=== PATIENT | female | born 1945 | race Caucasian/White ===

== ENCOUNTER 2020-01-29 14:00 | Emergency (ER) | payer MEDICARE, BC ==
--- NOTE | 2020-01-29 15:05 | EDM.PDOC ---
ED HPI GENERAL MEDICAL PROBLEM - General Chief Complaint: Cardiovascular Problem Stated Complaint: SOB/ AFIB acting up Time Seen by Provider: 01/29/20 14:41 Source of Information: Reports: Patient History Limitations: Reports: No Limitations - History of Present Illness INITIAL COMMENTS - FREE TEXT/NARRATIVE: This patient is a pleasant 74 year old female that presents to the ER. Patient reports that she has had chronic a-fib for years. She reports that she has a loop. She reports that she used to go in and out of a-fib all the time when she was on Lopressor. She reports back in April she got switched to Diltiazem and it has been working well for her. She reports she has gone in an out of a-fib since then, but it does not last long. She reports that the past couple of weeks she has been having dizziness and shortness of breath, worse since Saturday , then a little worse today. She reports that she has felt like she has been going in and out of afib with it. She reports today, all day had it, but worse around noon, she had some dizziness with positional changes and shortness of breath, she checked her loop. The recorder called her and said she was in a- fib. The patient presents to the ER because the recorder from the loop called and her and told her she was in a-fib. The patient does reports she has been seen for this complaint. She is on coumadin as well for a-fib. 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 Patent denies any chest pain. She does report a history of several weeks having left lower dental pain and swelling. She reports her dentist did a filling, but it had swelling couple days ago, she she was put on Amoxicillin, took a couple days, then was switched to Cephalexin. The swelling has improved, she has appointment with dentist on to get the tooth pulled. Onset: Other (comes and goes for years) Duration: Week(s): ("several"), Other ("years") Severity: Mild Improves with: Reports: Rest Associated Symptoms: Reports: Shortness of Breath. Denies: Confusion, Chest Pain, Cough, cough w sputum, Diaphoresis, Fever/Chills, Headaches, Loss of Appetite, Malaise, Nausea/Vomiting, Rash, Seizure, Syncope, Weakness - Related Data Allergies Allergy/AdvReac Type Severity Reaction Status Date / Time Iodinated Contrast Media Allergy Unknown Cannot Verified 01/29/20 14:57 [Iodinated Contrast Media - Remember IV Dye] Penicillins Allergy Rash Verified 01/29/20 14:57 Home Meds: Home Meds Albuterol [Ventolin HFA] 2 puff INH BID PRN 01/21/14 [History] Ciclesonide [Omnaris] 2 sprays NS DAILY PRN 01/21/14 [History] Citalopram Hydrobromide [Citalopram HBr] 15 mg PO BEDTIME 01/21/14 [History] Cranberry Fruit Extract/Vit C [Azo Cranberry Softgel] 1 each PO DAILY 01/21/14 [ History] Fish Oil/[place]-3 Fatty Acids [Fish Oil] 1 cap PO BID 01/21/14 [History] Warfarin Sodium 5 mg PO DAILY 01/21/14 [History] Diltiazem IR [Cardizem] 30 mg PO BID 01/29/20 [History] Past Medical History HEENT 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: Cataract Cardiovascular 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: Afib, Blood Clots/VTE/DVT, SOB on Exertion Other Cardiovascular History: Telemetry today appears to be PAC's not A fib; appears that she has regular P's; the patient says she has Afib at times, sometimes she can "feel" when she has it; says she has some chest pain at times , tightness, especially when laying on her left shoulder, more like "bursitis or pleurisy;" c/o dizziness when she gets up too fast, goes away within a few minutes; Respiratory 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: Asthma, Sleep Apnea Other Respiratory History: uses CPAP Gastrointestinal 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: GERD VP OUTCOMES 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: Other VP OUTCOMES History: hysterectomy 25 years ago Musculoskeletal 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: Arthritis Other Musculoskeletal History: says she fell on ice last winter, needed stitches ; uses outdoor Psychiatric 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: Anxiety, Depression - Infectious Disease History Infectious Disease 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: Chicken Pox, Shingles - Past Surgical History HEENT Surgical 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: Cataract Surgery GI Surgical 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: Colonoscopy Musculoskeletal Surgical 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: Knee Replacement Social & Family History - Family History Family Medical History: Noncontributory Endocrine/Metabolic: Reports: Diabetes, type II Oncologic: Reports: Leukemia, Non-Hodgkin's Lymphoma - Tobacco Use Smoking Status *Q: Never Smoker - Caffeine Use Caffeine Use: Reports: None - Recreational Drug Use Recreational Drug Use: No ED ROS GENERAL - Review of Systems Review Of Systems: See Below Constitutional: Reports: No Symptoms HEENT: Reports: Dental Pain Respiratory: Reports: Shortness of Breath. Denies: Wheezing, Cough, Sputum, Hemoptysis Cardiovascular: Reports: Lightheadedness. Denies: Chest Pain, Edema, Palpitations Endocrine: Reports: No Symptoms GI/Abdominal: Reports: No Symptoms. Denies: Abdominal Pain, Nausea, Vomiting : Reports: No Symptoms Musculoskeletal: Reports: No Symptoms Skin: Reports: No Symptoms Neurological: Reports: No Symptoms. Denies: Confusion, Headache, Numbness, Seizure, Syncope, Tingling, Weakness, Change in Speech Psychiatric: Reports: No Symptoms Hematologic/Lymphatic: Reports: No Symptoms Immunologic: Reports: No Symptoms ED EXAM, GENERAL - Physical Exam Exam: See Below Exam Limited By: No Limitations General Appearance: Alert, WD/WN, No Apparent Distress Eye Exam: Bilateral Eye: EOMI, Normal Inspection, PERRL Ears: Normal External Exam, Normal Canal, Hearing Grossly Normal, Normal TMs Ear Exam: Bilateral Ear: Auricle Normal, Canal Normal, TM normal Nose: Normal Inspection, Normal Mucosa, No Blood Throat/Mouth: Normal Inspection, Normal Lips, Normal Gums, Normal Oropharynx, Normal Voice, No Airway Compromise, Other (dental decay, mild gum swelling left lower with cavity. No abscess felt on exam.) Head: Atraumatic, Normocephalic. No: Facial Swelling Neck: Normal Inspection, Supple, Non-Tender, Full Range of Motion Respiratory/Chest: No Respiratory Distress, Lungs Clear, Normal Breath Sounds, No Accessory Muscle Use Cardiovascular: Irregularly Irregular (rate of 90, a-fib) Peripheral Pulses: 2+: Carotid (L), Carotid (R), Radial (L), Radial (R), Posterior Tibial (L), Posterior Tibial (R), Dorsalis Pedis (L), Dorsalis Pedis ( R) GI/Abdominal: Soft, Non-Tender Extremities: Normal Inspection, Normal Range of Motion, Non-Tender, No Pedal Edema, Normal Capillary Refill Neurological: Alert, Oriented, CN II-XII Intact, Normal Cognition, No Motor/ Sensory Deficits Psychiatric: Normal Affect, Normal Mood Skin Exam: Warm, Dry, Intact, Normal Color, No Rash Lymphatic: No Adenopathy EKG INTERPRETATION EKG Date: 01/29/20 Time: 14:28 Rhythm: A-Fib Rate (Beats/Min): 91 Course - Vital Signs Last Recorded V/S: Last Vital Signs Temp 96.3 F L 01/29/20 16:29 Pulse 89 01/29/20 16:29 Resp 18 01/29/20 16:29 BP 176/86 H 01/29/20 16:29 Pulse Ox 97 01/29/20 16:29 - Orders/Labs/Meds Orders: Active Orders 24 hr Category Date Time Status Chest 2V [CR] Stat Exams 01/29/20 15:25 Taken Labs: Laboratory Tests 01/29/20 01/29/20 01/29/20 Range/Units 14:33 14:33 14:33 WBC 7.4 (5.0-10.0) 10^3/uL RBC 4.36 (4.00-5.50) 10^6/uL Hgb 13.3 (12.0-16.0) g/dL Hct 40.0 (37.0-47.0) % MCV 91.7 (82.0-94.0) fL MCH 30.5 (27.0-32.0) pg MCHC 33.3 (33.0-38.0) g/dL RDW Coeff of [place] 13.9 (11.0-15.0) % Plt Count 272 (150-400) 10^3/uL Neut % (Auto) 61.6 (35-85) % Lymph % (Auto) 27.2 (10-55) % [place] % (Auto) 10.0 (0-16) % Eos % (Auto) 0.8 (0-5) % Baso % (Auto) 0.4 (0-3) % Neut # (Auto) 4.57 (1.80-7.00) 10^3/uL Lymph # (Auto) 2.02 (1.00-4.80) 10^3/uL [place] # (Auto) 0.74 (0.00-0.80) 10^3/uL Eos # (Auto) 0.06 (0.00-0.45) 10^3/uL Baso # (Auto) 0.03 10^3/uL PT 32.6 H (9.7-12.3) SEC INR 3.27 H (0.92-1.18) Sodium 137 (136-145) mEq/L Potassium 4.3 (3.5-5.0) mEq/L Chloride 100 (98-106) mEq/L Carbon Dioxide 32 (21-32) mmol/L BUN 22 H (7-18) mg/dL Creatinine 1.2 H (0.6-1.0) mg/dL Est Cr Clr Drug Dosing 37.92 mL/min Estimated GFR (MDRD) 44 L (>=60) mL/min Glucose 98 (75-99) mg/dL Calcium 8.8 (8.4-10.1) mg/dL Lactate Dehydrogenase 82 L (100-190) U/L Creatine Kinase 46 (21-215) U/L Troponin I < 0.017 (0.00-0.06) ng/mL NT-Pro-B Natriuret Pep 3166 H (0-1000) pg/mL - Radiology Interpretation Free Text/Narrative:: CXR: No infiltrates, no pulmonary edema, no cardiac enlargement. - Re-Assessments/Exams Free Text/Narrative Re-Assessment/Exam: 01/29/20 15:[address] [facility] surface boss. One call busy, they will call me back. 01/29/20 16:15 Patient reports she is still having shortness of breath and lightheadedness. I called and spoke to surface boss Dr. Anderson at [facility]. She reports patient should be admitted with pacer pads on and to see an [employer] Tender for possible pacing/pacemaker/ablation. Due to patient having proximal a-fib, hx of bradycardia, and currently symptomatic. She reports they do not have an EP loss control technician over the weekend. She recommends admit, but where an EP is loss control technician on weekend. I was then transferred to [facility]. I then spoke to hospitalist Dr. Leone. He reports they do not have an EP loss control technician this weekend either. He also reports patient needs admit for evaluation and surface boss consult. He said he will accept the patient. However, the patient surface boss is in [place]. Patient also refuses to go to [place]. 01/29/20 16:[address] [facility] one call back. I asked if they would accept the patient to hospitalist service due to no EP in [place]. And this is where patient surface boss is located. One call reports they spoke to the hospitalist, but the surface boss did not feel comfortable accepting the patient. So, they are paging Dr. Samuels surface boss to see about accepting. They will call me back. 01/29/20 17:00 Patient son Prince called and we discussed the patient and reason for delays in transfer/admit/discharge. 01/29/20 17:20 Dr. Anderson surface boss at [facility] called me back. She reports she spoke to Dr. Samuels surface boss EP and went over patient case in great detail. Dr. Anderson reports that doctor Abril does not believe this is anything and can be discharged out patient to be seen Saturday. Discharge patient home. I then spoke to the patient and she reports she feels comfortable going home. As this has been ongoing since Saturday. I did educate patient she may return at anytime if she would like to be admitted. She reports she would like to go home. I also educated her when to return for worsening. I then called and spoke to son Prince again. We discussed admit vs discharge. He reports he will stop in and check on her at home. Patient reports she has good neighbors. Will discharge home. Departure - Departure Time of Disposition: 17:33 Disposition: Home, Self-Care 01 Condition: Fair Clinical Impression: Afib, Atrial fibrillation Instructions: Atrial Fibrillation, [id number] Referrals: Stephie Villalpando PA [Primary Care Provider] - Forms: ED Department Discharge Additional Instructions: Followup with Dr. Samuels by calling office Saturday for possible appointment that or Saturday I spoke with Consumer Marketing Specialist Dr. Anderson about your care today in the ER: She also spoke with Dr. Samuels Please return to the ER for worsening of condition or any emergent concerns Followup with your primary care provider Sepsis Event Note - Evaluation Sepsis Screening Result: No Definite Risk - Focused Exam Vital Signs: Vital Signs Temp Pulse Resp BP Pulse Ox 01/29/20 16:29 96.3 F L 89 18 176/86 H 97 01/29/20 14:01 97.6 F 91 20 126/73 98 Date Exam was Performed: 01/29/20 Time Exam was Performed: 17:33 - My Orders Last 24 Hours: My Active Orders 01/29/20 15:25 Chest 2V [CR] Stat - Assessment/Plan Last 24 Hours: My Active Orders 01/29/20 15:25 Chest 2V [CR] Stat Plan: PLEASE SEE RN NOTE FOR PFSH
[2020-01-29 15:06] LABS: CHLORIDE,CL 100 mEq/L (98-106); SODIUM,NA 137 mEq/L (136-145)
[2020-01-29 16:32] VITALS: BP 176/86; PULSE 89
== END 2020-01-29 17:43 | disposition home or self-care (01) ==
LOC: CC.ED 14:00
DX: I48.91 Unspecified atrial fibrillation (principal); J45.909 Unspecified asthma, uncomplicated; F41.9 Anxiety disorder, unspecified; F32.9 Major depressive disorder, single episode, unspecified; Z79.01 Long term (current) use of anticoagulants; Z79.899 Other long term (current) drug therapy; Z91.041 Radiographic dye allergy status; Z88.0 Allergy status to penicillin; R06.02 Shortness of breath
CPT/HCPCS: 36415; 71046; 80048; 82550; 83615; 83880; 84484; 85025; 85610; 99284; 99285-25

== ENCOUNTER 2020-01-31 14:32 | Emergency (ER) | payer MEDICARE, BC ==
--- NOTE | 2020-01-31 14:53 | EDM.PDOC ---
ED HPI GENERAL MEDICAL PROBLEM - General Chief Complaint: General Stated Complaint: syncopal episode Time Seen by Provider: 01/31/20 14:47 Source of Information: Reports: Patient History Limitations: Reports: No Limitations - History of Present Illness INITIAL COMMENTS - FREE TEXT/NARRATIVE: This patient is a 74 year old female that presents to the ER. Patient reports that she was at home today and her children had just brought her lunch. She reports she was eating then stood, felt lightheaded, then passed out. The family caughter her during passing out and laid her to the floor. There was no fall or injury. EMS reports that family said she was passed out and would not answer them. EMS reports when they arrived patient was alert and oriented and awake. Patient arrives in the ER awake and alert. Patient was seen in this ER Saturday and seen by me. She was seen for lightheaded, a-fib complaint. She has been feeling lightheaded since Saturday on and off again. Discussed transfer on Saturday with Randall Hicks, but cardiology reported to discharge patient home and would see out patient on Saturday. Onset: Today Onset Date: 01/31/20 Onset Time: 13:30 Severity: Moderate Improves with: Reports: None Worsens with: Reports: None Associated Symptoms: Reports: Shortness of Breath, Syncope, Weakness ( generalized). Denies: Confusion, Chest Pain, Cough, cough w sputum, Diaphoresis , Fever/Chills, Headaches, Loss of Appetite, Malaise, Nausea/Vomiting, Rash, Seizure - Related Data Allergies Allergy/AdvReac Type Severity Reaction Status Date / Time Iodinated Contrast Media Allergy Unknown Cannot Verified 01/31/20 14:40 [Iodinated Contrast Media - Remember IV Dye] Penicillins Allergy Rash Verified 01/31/20 14:40 Home Meds: Home Meds Albuterol [Ventolin HFA] 2 puff INH BID PRN 01/21/14 [History] Ciclesonide [Omnaris] 2 sprays NS DAILY PRN 01/21/14 [History] Citalopram Hydrobromide [Citalopram HBr] 15 mg PO BEDTIME 01/21/14 [History] Cranberry Fruit Extract/Vit C [Azo Cranberry Softgel] 1 each PO DAILY 01/21/14 [ History] Fish Oil/[place]-3 Fatty Acids [Fish Oil] 1 cap PO BID 01/21/14 [History] Warfarin Sodium 5 mg PO DAILY 01/21/14 [History] Diltiazem IR [Cardizem] 30 mg PO BID 01/29/20 [History] cephALEXin [Cephalexin] 500 mg PO QID 01/31/20 [History] Past Medical History HEENT 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: Cataract Cardiovascular 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: Afib, Blood Clots/VTE/DVT, SOB on Exertion Other Cardiovascular History: Telemetry today appears to be PAC's not A fib; appears that she has regular P's; the patient says she has Afib at times, sometimes she can "feel" when she has it; says she has some chest pain at times , tightness, especially when laying on her left shoulder, more like "bursitis or pleurisy;" c/o dizziness when she gets up too fast, goes away within a few minutes; Respiratory 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: Asthma, Sleep Apnea Other Respiratory History: uses CPAP Gastrointestinal 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: GERD ACREAGE REPORTER 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: Other ACREAGE REPORTER History: hysterectomy 25 years ago Musculoskeletal 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: Arthritis Other Musculoskeletal History: says she fell on ice last winter, needed stitches ; uses outdoor Psychiatric 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: Anxiety, Depression - Infectious Disease History Infectious Disease 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: Chicken Pox, Shingles - Past Surgical History HEENT Surgical 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: Cataract Surgery GI Surgical 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: Colonoscopy Musculoskeletal Surgical 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: Knee Replacement Social & Family History - Family History Family Medical History: Noncontributory Endocrine/Metabolic: Reports: Diabetes, type II Oncologic: Reports: Leukemia, Non-Hodgkin's Lymphoma ED [facility] GENERAL - Review of Systems Review Of Systems: See Below Constitutional: Reports: Weakness (generalized) HEENT: Reports: No Symptoms Respiratory: Reports: Shortness of Breath. Denies: Wheezing, Pleuritic Chest Pain, Cough, Sputum, Hemoptysis Cardiovascular: Reports: Dyspnea on Exertion, Lightheadedness, Syncope. Denies : Chest Pain, Edema, Palpitations Endocrine: Reports: No Symptoms GI/Abdominal: Reports: No Symptoms. Denies: Abdominal Pain, Diarrhea, Nausea, Vomiting : Reports: No Symptoms Musculoskeletal: Reports: No Symptoms Skin: Reports: No Symptoms Neurological: Reports: Syncope. Denies: Confusion, Headache, Seizure, Tremors, Trouble Speaking, Weakness (no unilateral weaknesses. Stroke Score 0. GCS 15.), Change in Speech Psychiatric: Reports: No Symptoms Hematologic/Lymphatic: Reports: No Symptoms Immunologic: Reports: No Symptoms ED EXAM, GENERAL - Physical Exam Exam: See Below Exam Limited By: No Limitations General Appearance: Alert, WD/WN, No Apparent Distress Eye Exam: Bilateral Eye: EOMI, Normal Inspection, PERRL Ears: Normal External Exam, Normal Canal, Hearing Grossly Normal, Normal TMs Ear Exam: Bilateral Ear: Auricle Normal, Canal Normal, TM normal Nose: Normal Inspection, Normal Mucosa, No Blood Throat/Mouth: Normal Inspection, Normal Lips, Normal Teeth, Normal Gums, Normal Oropharynx, Normal Voice, No Airway Compromise Head: Atraumatic, Normocephalic Neck: Normal Inspection, Supple, Non-Tender, Full Range of Motion Respiratory/Chest: No Respiratory Distress, Lungs Clear, Normal Breath Sounds, No Accessory Muscle Use Cardiovascular: Irregularly Irregular (rate 70-80s on exam) Peripheral Pulses: 2+: Carotid (L), Carotid (R), Radial (L), Radial (R), Posterior Tibial (L), Posterior Tibial (R), Dorsalis Pedis (L), Dorsalis Pedis ( R) GI/Abdominal: Normal Bowel Sounds, Soft, Non-Tender, No Organomegaly, No Distention Back Exam: Normal Inspection, Full Range of Motion Extremities: Normal Inspection, Normal Range of Motion, Non-Tender, No Pedal Edema, Normal Capillary Refill Neurological: Alert, Oriented, CN II-XII Intact, Normal Cognition, Normal Gait, No Motor/Sensory Deficits Psychiatric: Normal Affect, Normal Mood Skin Exam: Warm, Dry, Intact, Normal Color, No Rash Lymphatic: No Adenopathy EKG INTERPRETATION EKG Date: 01/31/20 Time: 14:40 Rhythm: A-Fib Rate (Beats/Min): 86 Comparison: No Change Course - Vital Signs Last Recorded V/S: Last Vital Signs Temp 98.0 F 01/31/20 14:41 Pulse 70 01/31/20 14:41 Resp 16 01/31/20 15:19 BP 155/58 H 01/31/20 15:19 Pulse Ox 99 01/31/20 15:19 - Orders/Labs/Meds Orders: Active Orders 24 hr Category Date Time Status Chest 2V [CR] Stat Exams 01/31/20 14:48 Taken Head wo Cont [CT] Routine Exams 01/31/20 Taken EKG 12 Lead [EK] Stat Ther 01/31/20 14:47 Ordered Labs: Laboratory Tests 01/31/20 01/31/20 01/31/20 Range/Units 14:43 14:43 14:43 WBC 6.4 (5.0-10.0) 10^3/uL RBC 4.63 (4.00-5.50) 10^6/uL Hgb 14.1 (12.0-16.0) g/dL Hct 42.2 (37.0-47.0) % MCV 91.1 (82.0-94.0) fL MCH 30.5 (27.0-32.0) pg MCHC 33.4 (33.0-38.0) g/dL RDW Coeff of Rubens 13.9 (11.0-15.0) % Plt Count 285 (150-400) 10^3/uL Neut % (Auto) 56.8 (35-85) % Lymph % (Auto) 35.2 (10-55) % [place] % (Auto) 6.9 (0-16) % Eos % (Auto) 0.8 (0-5) % Baso % (Auto) 0.3 (0-3) % Neut # (Auto) 3.65 (1.80-7.00) 10^3/uL Lymph # (Auto) 2.26 (1.00-4.80) 10^3/uL [place] # (Auto) 0.44 (0.00-0.80) 10^3/uL Eos # (Auto) 0.05 (0.00-0.45) 10^3/uL Baso # (Auto) 0.02 10^3/uL PT 33.7 H (9.7-12.3) SEC INR 3.38 H (0.92-1.18) APTT 33.9 H (23.2-32.3) SEC Sodium 138 (136-145) mEq/L Potassium 4.0 (3.5-5.0) mEq/L Chloride 100 (98-106) mEq/L Carbon Dioxide 31 (21-32) mmol/L BUN 20 H (7-18) mg/dL Creatinine 1.2 H (0.6-1.0) mg/dL Est Cr Clr Drug Dosing 37.92 mL/min Estimated GFR (MDRD) 44 L (>=60) mL/min Glucose 131 H D (75-99) mg/dL Lactic Acid (0.4-2.0) mmol/L Calcium 9.2 (8.4-10.1) mg/dL Total Bilirubin 0.5 (0.0-1.0) mg/dL AST 20 (15-37) U/L ALT 22 (12-78) U/L Alkaline Phosphatase 74 (46-116) U/L Lactate Dehydrogenase 90 L (100-190) U/L Creatine Kinase 50 (21-215) U/L Troponin I < 0.017 (0.00-0.06) ng/mL NT-Pro-B Natriuret Pep 2809 H (0-1000) pg/mL Total Protein 6.8 (6.4-8.2) g/dL Albumin 3.4 (3.4-5.0) g/dL Urine Color (YELLOW) Urine Appearance (CLEAR) Urine pH (4.5-8.0) Ur Specific [place] (1.003-1.020) Urine Protein (NEGATIVE) mg/dL Urine Glucose (UA) (NEGATIVE) mg/dL Urine Ketones (NEGATIVE) mg/dL Urine Occult Blood (NEGATIVE) Urine Nitrite (NEGATIVE) Urine Bilirubin (NEGATIVE) Urine Urobilinogen (0.2-1.0) EU/dL Ur Leukocyte Esterase (NEGATIVE) 01/31/20 01/31/20 Range/Units 14:43 14:48 WBC (5.0-10.0) 10^3/uL RBC (4.00-5.50) 10^6/uL Hgb (12.0-16.0) g/dL Hct (37.0-47.0) % MCV (82.0-94.0) fL MCH (27.0-32.0) pg MCHC (33.0-38.0) g/dL RDW Coeff of Rubens (11.0-15.0) % Plt Count (150-400) 10^3/uL Neut % (Auto) (35-85) % Lymph % (Auto) (10-55) % [place] % (Auto) (0-16) % Eos % (Auto) (0-5) % Baso % (Auto) (0-3) % Neut # (Auto) (1.80-7.00) 10^3/uL Lymph # (Auto) (1.00-4.80) 10^3/uL [place] # (Auto) (0.00-0.80) 10^3/uL Eos # (Auto) (0.00-0.45) 10^3/uL Baso # (Auto) 10^3/uL PT (9.7-12.3) SEC INR (0.92-1.18) APTT (23.2-32.3) SEC Sodium (136-145) mEq/L Potassium (3.5-5.0) mEq/L Chloride (98-106) mEq/L Carbon Dioxide (21-32) mmol/L BUN (7-18) mg/dL Creatinine (0.6-1.0) mg/dL Est Cr Clr Drug Dosing mL/min Estimated GFR (MDRD) (>=60) mL/min Glucose (75-99) mg/dL Lactic Acid 1.4 (0.4-2.0) mmol/L Calcium (8.4-10.1) mg/dL Total Bilirubin (0.0-1.0) mg/dL AST (15-37) U/L ALT (12-78) U/L Alkaline Phosphatase (46-116) U/L Lactate Dehydrogenase (100-190) U/L Creatine Kinase (21-215) U/L Troponin I (0.00-0.06) ng/mL NT-Pro-B Natriuret Pep (0-1000) pg/mL Total Protein (6.4-8.2) g/dL Albumin (3.4-5.0) g/dL Urine Color Yellow (YELLOW) Urine Appearance Clear (CLEAR) Urine pH 7.0 (4.5-8.0) Ur Specific [place] 1.025 H (1.003-1.020) Urine Protein Negative (NEGATIVE) mg/dL Urine Glucose (UA) Negative (NEGATIVE) mg/dL Urine Ketones Negative (NEGATIVE) mg/dL Urine Occult Blood Negative (NEGATIVE) Urine Nitrite Negative (NEGATIVE) Urine Bilirubin Negative (NEGATIVE) Urine Urobilinogen 0.2 (0.2-1.0) EU/dL Ur Leukocyte Esterase Negative (NEGATIVE) - Radiology Interpretation Free Text/Narrative:: CXR: No infiltrates, no pulmonary edema. No changes from previous Head CT: No acute findings. CT Results Date: 01/31/20 CT Results Time: 15:15 - Re-Assessments/Exams Free Text/Narrative Re-Assessment/Exam: 01/31/20 15:26 I called and spoke to Obi [facility]. He paged Dr. Pimentel hospitalist at [facility], but was instructed to page out the hair blender. One Call now is paging Dr. Samuels the patient hair blender EP. 01/31/20 15:[address] Samuels is not answering his call back and his CAR DRIVER is not. Therefore, page is now out to the hair blender Dr. Anderson product manufacturing professional. 01/31/20 15:[address] Anderson cardilogist, she reports to transfer the patient for syncope. Dr. Loren sultanaist has accepted the patient. Departure - Departure Time of Disposition: 15:45 Disposition: DC/Tfer to [facility] 02 Condition: Fair Clinical Impression: Afib, Atrial fibrillation Syncope Qualifiers: Syncope type: unspecified Qualified Code(s): R55 - Syncope and collapse - Discharge Information *PRESCRIPTION DRUG MONITORING PROGRAM REVIEWED*: Not Applicable *COPY OF PRESCRIPTION DRUG MONITORING REPORT IN PATIENT RAMIRO: Not Applicable Forms: ED Department Discharge Sepsis Event Note - Evaluation Sepsis Screening Result: No Definite Risk - Focused Exam Vital Signs: Vital Signs Temp Pulse Resp BP Pulse Ox 01/31/20 15:19 16 155/58 H 99 01/31/20 14:41 98.0 F 70 18 128/47 L 99 Date Exam was Performed: 01/31/20 Time Exam was Performed: 15:43 - My Orders Last 24 Hours: My Active Orders 01/31/20 Head wo Cont [CT] Routine 01/31/20 14:47 EKG 12 Lead [EK] Stat 01/31/20 14:48 Chest 2V [CR] Stat - Assessment/Plan Last 24 Hours: My Active Orders 01/31/20 Head wo Cont [CT] Routine 01/31/20 14:47 EKG 12 Lead [EK] Stat 01/31/20 14:48 Chest 2V [CR] Stat Plan: PLEASE SEE RN NOTE FOR PFSH I am transferring the patient to [facility]. I have explained the risks vs benefits to the patient. The risks of transfer is mvc, cardiac arrest, [place], stroke, syncope, worsening of condition. The risks of staying in [place] is [place], Stroke, Syncope, . The benefits of the transfer is higher level of care , hair blender consult, Cardiology EP, ablation if needed. The benefits of staying in [place] is close to home.
[2020-01-31 15:04] LABS: PTT,PARTIAL THROMBOPLSTIN TIME 33.9 SEC (23.2-32.3)
[2020-01-31 15:05] LABS: CHLORIDE,CL 100 mEq/L (98-106); SODIUM,NA 138 mEq/L (136-145)
[2020-01-31 16:24] VITALS: BP 155/88; PULSE 88
== END 2020-01-31 16:35 ==
LOC: CC.ED 14:32
DX: I48.91 Unspecified atrial fibrillation (principal); F41.9 Anxiety disorder, unspecified; R55 Syncope and collapse; Z91.041 Radiographic dye allergy status; Z88.0 Allergy status to penicillin; Z79.899 Other long term (current) drug therapy; Z79.01 Long term (current) use of anticoagulants; J45.909 Unspecified asthma, uncomplicated
CPT/HCPCS: 36415; 70450; 71046; 80053; 81003; 82550; 83605; 83615; 83880; 84484; 85025; 85610; 85730; 93005; 99284; 99285-25

== ENCOUNTER 2020-04-05 11:03 | Observation (INO) | payer MEDICARE, BC ==
[2020-04-05 11:35] LABS: PTT,PARTIAL THROMBOPLSTIN TIME 30.3 SEC (23.2-32.3)
[2020-04-05 11:59] LABS: CHLORIDE,CL 105 mEq/L (98-106); SODIUM,NA 143 mEq/L (136-145)
[2020-04-05] MEDS ORDERED: Docusate Sodium 100 MG Cap PO PRN (13:14)
[2020-04-05] MEDS ORDERED: Sodium Chloride 0.9% 10 ML Syringe FLUSH PRN (13:14)
--- NOTE | 2020-04-05 13:24 | EDM.PDOC ---
ED HPI GENERAL MEDICAL PROBLEM - General Chief Complaint: General Stated Complaint: A-FIB Time Seen by Provider: 04/05/20 11:37 Source of Information: Reports: Patient History Limitations: Reports: No Limitations - History of Present Illness INITIAL COMMENTS - FREE TEXT/NARRATIVE: Luba is a 74 yo female who presents to the ED with concerns of atrial fibrillation. She states she has a history of atrial fibrillation and has been on Coumadin for quite some time. She admits to starting to notice around 2000hrs yesterday she just wasn't feeling well. Admits to getting lightheaded and having a sharp pain across her left side of her chest. She admits she did call her numerical control drill press operator at [facility] in [place] and he did put in an order for an EKG, which she had this morning. When she got the EKG she felt generalized weak. She states she did notice a headache this morning too, rates it a 5 out of a 10. No other neurological symptoms. Admits to feeling short of breath but is chronic for her. Headache Pain Score (Numeric/FACES): 5 - Related Data Allergies Allergy/AdvReac Type Severity Reaction Status Date / Time Iodinated Contrast Media Allergy Unknown Cannot Verified 04/05/20 11:17 [Iodinated Contrast Media - Remember IV Dye] Penicillins Allergy Rash Verified 04/05/20 11:17 Home Meds: Home Meds Albuterol [Ventolin HFA] 2 puff INH BID PRN 01/21/14 [History] Citalopram Hydrobromide [Citalopram HBr] 15 mg PO BEDTIME 01/21/14 [History] Cranberry Fruit Extract/Vit C [Azo Cranberry Softgel] 1 each PO DAILY 01/21/14 [History] Fish Oil/[place]-3 Fatty Acids [Fish Oil] 1 cap PO BID 01/21/14 [History] Warfarin Sodium 5 mg PO DAILY 01/21/14 [History] Diltiazem IR [Cardizem] 30 mg PO BID 01/29/20 [History] Past Medical History HEENT 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: Cataract Cardiovascular 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: Afib, Blood Clots/VTE/DVT, SOB on Exertion Other Cardiovascular History: Telemetry today appears to be PAC's not A fib; appears that she has regular P's; the patient says she has Afib at times, sometimes she can "feel" when she has it; says she has some chest pain at times, tightness, especially when laying on her left shoulder, more like "bursitis or pleurisy;" c/o dizziness when she gets up too fast, goes away within a few minutes; Respiratory 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: Asthma, Sleep Apnea Other Respiratory History: uses CPAP Gastrointestinal 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: GERD 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 REFUELER 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: Other AIRPLANE REFUELER History: hysterectomy 25 years ago Musculoskeletal 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: Arthritis Other Musculoskeletal History: says she fell on ice last winter, needed stitches; uses outdoor Psychiatric 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: Anxiety, Depression - Infectious Disease History Infectious Disease 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: Chicken Pox, Shingles - Past Surgical History HEENT Surgical 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: Cataract Surgery GI Surgical 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: Colonoscopy Musculoskeletal Surgical 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: Knee Replacement Social & Family History - Family History Family Medical History: Noncontributory Endocrine/Metabolic: Reports: Diabetes, type II Oncologic: Reports: Leukemia, Non-Hodgkin's Lymphoma - Tobacco Use Smoking Status *Q: Never Smoker - Caffeine Use Caffeine Use: Reports: None - Recreational Drug Use Recreational Drug Use: No ED ROS GENERAL - Review of Systems Review Of Systems: See Below Constitutional: Reports: Weakness, Fatigue. Denies: Fever, Chills, Night Sweats HEENT: Reports: No Symptoms. Denies: Vision Change Respiratory: Reports: Shortness of Breath. Denies: Wheezing, Cough Cardiovascular: Reports: Chest Pain (last night, subsided almost immediately with no reoccurence. ), Lightheadedness, Palpitations. Denies: Syncope GI/Abdominal: Reports: No Symptoms : Reports: Frequency Musculoskeletal: Reports: No Symptoms Skin: Reports: No Symptoms Neurological: Reports: Headache, Weakness Psychiatric: Reports: No Symptoms ED EXAM, GENERAL - Physical Exam Exam: See Below Exam Limited By: No Limitations General Appearance: Alert, WD/WN, No Apparent Distress Eye Exam: Bilateral Eye: Normal Inspection Ears: Normal External Exam, Normal Canal, Hearing Grossly Normal, Normal TMs Nose: Normal Inspection, Normal Mucosa, No Blood Throat/Mouth: Normal Inspection, Normal Lips, Normal Gums, Normal Oropharynx, Normal Voice, No Airway Compromise Head: Atraumatic, Normocephalic Neck: Normal Inspection, Supple. No: Lymphadenopathy (L), Lymphadenopathy (R) Respiratory/Chest: No Respiratory Distress, Lungs Clear, Normal Breath Sounds, No Accessory Muscle Use Cardiovascular: No Edema, No Murmur, Irregularly Irregular Peripheral Pulses: 2+: Dorsalis Pedis (L), Dorsalis Pedis (R) GI/Abdominal: Normal Bowel Sounds, Soft, Non-Tender, No Organomegaly, No Distention, No Abnormal Bruit, No Mass Extremities: Normal Inspection, No Pedal Edema Neurological: Alert, Oriented, Normal Cognition, No Motor/Sensory Deficits Psychiatric: Normal Affect, Normal Mood Skin Exam: Warm, Dry, Intact, Normal Color, No Rash EKG INTERPRETATION EKG Date: 04/05/20 Rhythm: A-Fib ST-T: Normal Course - Vital Signs Last Recorded V/S: Last Vital Signs Temp 98 F 04/05/20 12:37 Pulse 101 H 04/05/20 12:37 Resp 16 04/05/20 12:37 BP 119/74 04/05/20 12:37 Pulse Ox 95 04/05/20 12:37 - Orders/Labs/Meds Labs: Laboratory Tests 04/05/20 04/05/20 04/05/20 Range/Units 11:16 11:16 11:16 WBC 5.7 (5.0-10.0) 10^3/uL RBC 4.51 (4.00-5.50) 10^6/uL Hgb 13.4 (12.0-16.0) g/dL Hct 41.3 (37.0-47.0) % MCV 91.6 (82.0-94.0) fL MCH 29.7 (27.0-32.0) pg MCHC 32.4 L (33.0-38.0) g/dL RDW Coeff of Rubens 13.5 (11.0-15.0) % Plt Count 272 (150-400) 10^3/uL Neut % (Auto) 58.6 (35-85) % Lymph % (Auto) 31.5 (10-55) % [place] % (Auto) 8.4 (0-16) % Eos % (Auto) 1.2 (0-5) % Baso % (Auto) 0.3 (0-3) % Neut # (Auto) 3.36 (1.80-7.00) 10^3/uL Lymph # (Auto) 1.81 (1.00-4.80) 10^3/uL [place] # (Auto) 0.48 (0.00-0.80) 10^3/uL Eos # (Auto) 0.07 (0.00-0.45) 10^3/uL Baso # (Auto) 0.02 10^3/uL PT 22.8 H (9.7-12.3) SEC INR 2.28 H (0.92-1.18) APTT 30.3 (23.2-32.3) SEC Sodium (136-145) mEq/L Potassium (3.5-5.0) mEq/L Chloride (98-106) mEq/L Carbon Dioxide (21-32) mmol/L BUN (7-18) mg/dL Creatinine (0.6-1.0) mg/dL Est Cr Clr Drug Dosing mL/min Estimated GFR (MDRD) (>=60) mL/min Glucose (75-99) mg/dL Calcium (8.4-10.1) mg/dL Total Bilirubin (0.0-1.0) mg/dL AST (15-37) U/L ALT (12-78) U/L Alkaline Phosphatase (46-116) U/L Creatine Kinase (21-215) U/L Troponin I (0.00-0.06) ng/mL C-Reactive Protein (0.2-0.8) mg/dL Total Protein (6.4-8.2) g/dL Albumin (3.4-5.0) g/dL Urine Color Yellow (YELLOW) Urine Appearance Clear (CLEAR) Urine pH 7.0 (4.5-8.0) Ur Specific [place] 1.025 H (1.003-1.020) Urine Protein 30 H (NEGATIVE) mg/dL Urine Glucose (UA) Negative (NEGATIVE) mg/dL Urine Ketones Negative (NEGATIVE) mg/dL Urine Occult Blood Trace-intact H (NEGATIVE) Urine Nitrite Negative (NEGATIVE) Urine Bilirubin Negative (NEGATIVE) Urine Urobilinogen 0.2 (0.2-1.0) EU/dL Ur Leukocyte Esterase Negative (NEGATIVE) Urine RBC 0-5 (0-5) /HPF Urine WBC 0-5 (0-5) /HPF Ur Squamous Epith Cells Many H (NOT SEEN) /HPF 04/05/20 Range/Units 11:16 WBC (5.0-10.0) 10^3/uL RBC (4.00-5.50) 10^6/uL Hgb (12.0-16.0) g/dL Hct (37.0-47.0) % MCV (82.0-94.0) fL MCH (27.0-32.0) pg MCHC (33.0-38.0) g/dL RDW Coeff of Rubens (11.0-15.0) % Plt Count (150-400) 10^3/uL Neut % (Auto) (35-85) % Lymph % (Auto) (10-55) % [place] % (Auto) (0-16) % Eos % (Auto) (0-5) % Baso % (Auto) (0-3) % Neut # (Auto) (1.80-7.00) 10^3/uL Lymph # (Auto) (1.00-4.80) 10^3/uL [place] # (Auto) (0.00-0.80) 10^3/uL Eos # (Auto) (0.00-0.45) 10^3/uL Baso # (Auto) 10^3/uL PT (9.7-12.3) SEC INR (0.92-1.18) APTT (23.2-32.3) SEC Sodium 143 (136-145) mEq/L Potassium 4.1 (3.5-5.0) mEq/L Chloride 105 (98-106) mEq/L Carbon Dioxide 30 (21-32) mmol/L BUN 18 (7-18) mg/dL Creatinine 1.3 H (0.6-1.0) mg/dL Est Cr Clr Drug Dosing 33.65 mL/min Estimated GFR (MDRD) 40 L (>=60) mL/min Glucose 100 H (75-99) mg/dL Calcium 9.3 (8.4-10.1) mg/dL Total Bilirubin 0.5 (0.0-1.0) mg/dL AST 21 (15-37) U/L ALT 23 (12-78) U/L Alkaline Phosphatase 94 (46-116) U/L Creatine Kinase 81 (21-215) U/L Troponin I 0.054 (0.00-0.06) ng/mL C-Reactive Protein < 0.2 L (0.2-0.8) mg/dL Total Protein 7.3 (6.4-8.2) g/dL Albumin 3.6 (3.4-5.0) g/dL Urine Color (YELLOW) Urine Appearance (CLEAR) Urine pH (4.5-8.0) Ur Specific [place] (1.003-1.020) Urine Protein (NEGATIVE) mg/dL Urine Glucose (UA) (NEGATIVE) mg/dL Urine Ketones (NEGATIVE) mg/dL Urine Occult Blood (NEGATIVE) Urine Nitrite (NEGATIVE) Urine Bilirubin (NEGATIVE) Urine Urobilinogen (0.2-1.0) EU/dL Ur Leukocyte Esterase (NEGATIVE) Urine RBC (0-5) /HPF Urine WBC (0-5) /HPF Ur Squamous Epith Cells (NOT SEEN) /HPF Departure - Departure Time of Disposition: 12:50 Disposition: Refer to Observation Clinical Impression: Afib, Atrial fibrillation, Generalized weakness, Lightheadedness - Discharge Information Sepsis Event Note (ED) - Evaluation Sepsis Screening Result: No Definite Risk - Focused Exam Vital Signs: Vital Signs Temp Pulse Resp BP Pulse Ox 04/05/20 12:37 98 F 101 H 16 119/74 95 04/05/20 12:22 97.7 F 78 16 124/82 95 04/05/20 12:07 97.6 F 85 18 162/92 H 95 04/05/20 11:52 97.7 F 90 16 143/95 H 95 04/05/20 11:37 98.2 F 84 20 135/99 H 95 04/05/20 11:22 97.7 F 72 16 132/82 94 L 04/05/20 11:07 97.9 F 94 20 111/70 95 - Problem List & Annotations (1) Afib, Atrial fibrillation SNOMED Code(s): 83232710 Code(s): I48.91 - UNSPECIFIED ATRIAL FIBRILLATION Status: Chronic Current Visit: Yes Onset Date: 05/21/14 (2) Generalized weakness SNOMED Code(s): 06014823 Code(s): R53.1 - WEAKNESS Status: Acute Current Visit: Yes (3) Lightheadedness SNOMED Code(s): 144877586 Code(s): R42 - DIZZINESS AND GIDDINESS Status: Acute Current Visit: Yes - Assessment/Plan Admission H&P: Please use this note as an admission H&P Plan: Luba is currently in atrial fibrillation without rapid ventricular response. I do not feel this is causing her to feel general illness. We will admit to observation status under Dr. Jimenez. Will place on telemetry as well. Suzette Villalpando, primary provider, also alerted on patient admit and will follow during time in ED. Will repeat serial cardiac enzymes.
[2020-04-05] MEDS: Sodium Chloride 0.9% 1,000 ML IV SCH ×2 (13:47→22:52)
[2020-04-05] MEDS ORDERED: Acetaminophen 325 MG Tab PO PRN (13:47)
[2020-04-05] MEDS: DILTIAZEM IR PO SCH (19:44)
[2020-04-05] MEDS ORDERED: WARFARIN 5 MG PO SCH (20:00)
[2020-04-05] MEDS ORDERED: CITALOPRAM 10 MG PO SCH (20:00)
[2020-04-06] MEDS: DILTIAZEM IR PO SCH (07:33)
[2020-04-06 07:49] VITALS: BP 153/81; PULSE 95
[2020-04-06] MEDS ORDERED: hydrOXYzine HCl 25 MG Tab PO ONE (10:30)
--- NOTE | 2020-04-06 21:54 | PCM.DCSUM1 ---
Discharge Summary - Hospital Course Free Text/Narrative:: Luba is a 74 year old female who presented to the ER with concerns of atrial fibrillation. Has a history of paroxysmal atrial fib, symptomatic when occurs. Has been on Coumadin for some time now. On the evening of admission, started "not feeling well". Started getting lightheaded and had a sharp pain across the left side of her chest. She did contact the airport operations coordinator at [facility] and had put in an order for an EKG. Patient had that in the am. She felt weak, had a headache and rated her pain at a 5 out of 10. No other neurological symptoms. Had shortness of breath but that is chronic for her. Admitted for rule out cardiac concern. Diagnosis: Stroke: No - Discharge Data Discharge Date: 04/06/20 Discharge Disposition: Home, W Home Health Agency 06 Condition: Good - Referral to Home Health Date of Face to Face Encounter: 04/06/20 Reason for Homebound Status: Unable to drive due to concerns with lightheadedness while driving. Primary Care Physician: PCP Unknown Skilled Need: Cardiac monitoring, blood pressure following. Observe tolerance of new dose of Cardizem. Physical and occupational therapy for home safety - Discharge Diagnosis/Problem(s) (1) Afib, Atrial fibrillation SNOMED Code(s): 32963354 ICD Code: I48.91 - UNSPECIFIED ATRIAL FIBRILLATION Status: Chronic Prior ity: High Onset Date: 05/21/14 (2) Lightheadedness SNOMED Code(s): 458041955 ICD Code: R42 - DIZZINESS AND GIDDINESS Status: Acute Priority: High (3) Generalized weakness SNOMED Code(s): 09143681 ICD Code: R53.1 - WEAKNESS Status: Acute Priority: High - Patient Summary/Data Complications: none Consults: Consultations 04/05/20 13:14 PT Evaluation and Treatment [CONS] Routine Hospital Course: Patient is doing well this am. No further chest discomfort or lightheadedness. She does admit to feeling anxious in regards to returning home alone. Has been seeing Kellie Long for this as well. Did recently increase her antidepressant as a result. Patient has been doctoring for many years with atrial fib, symptomatic with palpitations when occurs. She states that worrying about her heart and being alone is a struggle for her. She recently had concerns with a syncopal episode related to hypotension. All her meds were adjusted and she was on Minodrine and Florinef for several weeks but that did cause her blood pressure to go to high. Both have been stopped by cardiology. Because of these concerns, family has been concerned driving and being alone. We did discuss assisted living and patient does feel that may be an option for her in the future. We did try a dose of hydroxyzine prior to discharge and will continue at home. Home health will follow patient for cardiac monitoring, blood pressure and med tolerance. - Patient Instructions Diet: Usual Diet as Tolerated Activity: As Tolerated Other/Special Instructions: Follow up with cardiology at end of March as previously planned - Discharge Plan *PRESCRIPTION DRUG MONITORING PROGRAM REVIEWED*: No *COPY OF PRESCRIPTION DRUG MONITORING REPORT IN PATIENT RAMIRO: No Prescriptions/Med Rec: Diltiazem IR [Cardizem] 30 mg PO TID #90 tablet hydrOXYzine HCL [Atarax] 25 mg PO Q6H #30 tab Home Medications: Home Meds Albuterol [Ventolin HFA] 2 puff INH BID PRN 01/21/14 [History] Citalopram Hydrobromide [Citalopram HBr] 20 mg PO BEDTIME 01/21/14 [History] Cranberry Fruit Extract/Vit C [Azo Cranberry Softgel] 1 each PO DAILY 01/21/14 [History] Fish Oil/[place]-3 Fatty Acids [Fish Oil] 1 cap PO BID 01/21/14 [History] Warfarin Sodium 5 mg PO DAILY 01/21/14 [History] Diltiazem IR [Cardizem] 30 mg PO TID #90 tablet 04/06/20 [Rx] hydrOXYzine HCL [Atarax] 25 mg PO Q6H #30 tab 04/06/20 [Rx] Patient Handouts: Atrial Fibrillation Forms: ED Department Discharge Referrals: Stephie Villalpando PA [ED Midlevel Provider] - (Hospital follow up in one week with Suzette) - Discharge Summary/Plan Comment DC Time >30 min.: No - General Info Date of Service: 04/06/20 Admission Dx/Problem (Free Text: Atrial Fib Generalized Weakness Dizziness Functional Status: Reports: Pain Controlled, Tolerating Diet, Ambulating - Review of Systems General: Reports: Weakness, Fatigue. Denies: Fever, Malaise HEENT: Reports: No Symptoms Pulmonary: Reports: Shortness of Breath (chronic complaint). Denies: Cough Cardiovascular: Denies: Chest Pain, Edema, Lightheadedness Gastrointestinal: Denies: Abdominal Pain, Nausea, Vomiting Genitourinary: Reports: No Symptoms Musculoskeletal: Reports: No Symptoms Skin: Reports: No Symptoms Neurological: Reports: Weakness Psychiatric: Reports: Anxiety - Patient Data Vitals - Most Recent: Last Vital Signs Temp 98.3 F 04/06/20 07:48 Pulse 95 04/06/20 07:48 Resp 18 04/06/20 07:48 BP 153/81 H 04/06/20 07:48 Pulse Ox 95 04/06/20 07:48 Weight - Most Recent: 205 lb 4.8 oz Lab Results - Last 24 hrs: Laboratory Results - last 24 hr 04/06/20 Range/Units 07:30 Sodium 144 (136-145) mEq/L Potassium 4.2 (3.5-5.0) mEq/L Chloride 108 H (98-106) mEq/L Carbon Dioxide 31 (21-32) mmol/L BUN 16 (7-18) mg/dL Creatinine 1.0 (0.6-1.0) mg/dL Est Cr Clr Drug Dosing 43.74 mL/min Estimated GFR (MDRD) 54 L (>=60) mL/min Glucose 89 (75-99) mg/dL Calcium 8.5 (8.4-10.1) mg/dL Creatine Kinase 58 (21-215) U/L Troponin I 0.054 (0.00-0.06) ng/mL Med Orders - Current: Current Medications Discontinued Medications Acetaminophen (Tylenol) 650 mg PO Q6H PRN PRN Reason: Pain/Fever Last Admin: 04/05/20 14:24 Dose: 650 mg Documented by: Citalopram Hydrobromide (Celexa) 20 mg PO BEDTIME [facility] Last Admin: 04/05/20 19:45 Dose: 20 mg Documented by: Diltiazem HCl (Cardizem) 30 mg PO BID [facility] Last Admin: 04/06/20 07:33 Dose: 30 mg Documented by: Docusate Sodium (Colace) 100 mg PO BID PRN PRN Reason: Constipation Hydroxyzine HCl (Atarax) 25 mg PO ONETIME ONE Stop: 04/06/20 10:31 Last Admin: 04/06/20 10:31 Dose: 25 mg Documented by: Sodium Chloride (Normal Saline) 1,000 mls @ 100 mls/hr IV ASDIRECTED [facility] Last Admin: 04/05/20 22:52 Dose: 100 mls/hr Documented by: Albuterol Inhaler 2 puff INH BID PRN PRN Reason: Dyspnea Sodium Chloride (Saline Flush) 10 ml FLUSH ASDIRECTED PRN PRN Reason: Keep Vein Open Warfarin Sodium (Coumadin) 5 mg PO BEDTIME [facility] Last Admin: 04/05/20 19:44 Dose: 5 mg Documented by: - Exam General: Reports: Alert, Oriented HEENT: Reports: Mucous Membr. Moist/[place] Neck: Reports: Supple Lungs: Reports: Clear to Auscultation, Normal Respiratory Effort Cardiovascular: Reports: Irregular Rhythm GI/Abdominal Exam: Normal Bowel Sounds, Soft, Non-Tender Extremities: Normal Inspection, No Pedal Edema Skin: Reports: Warm, Dry Neurological: Reports: No New Focal Deficit
== END 2020-04-06 08:57 | disposition home health service (06) ==
LOC: CC.ED 11:03 → CC.MS 12:43 → UNDOADMOB 12:43 → CC.MS 13:07
PROVIDERS: ADMIT Physician Assistant Medical; ATTEND Family Medicine
DX: I48.0 Paroxysmal atrial fibrillation (principal); R53.1 Weakness; Z79.899 Other long term (current) drug therapy; Z79.01 Long term (current) use of anticoagulants; Z88.0 Allergy status to penicillin; Z91.041 Radiographic dye allergy status
CPT/HCPCS: 36415; 80048; 80053; 81001; 82550; 84484; 85025; 85610; 85730; 86140; 93005; 93010; 96360; 96361; 99285; A9270-GY; G0378; J7030